=== PATIENT | male | born 1985 | race Hispanic/Latino ===

== ENCOUNTER 2024-05-19 16:00 | Emergency (ER) | payer BC, OTHER ==
[~2024-05-19] VITALS: Ht 175.3 cm; Wt 145.1 kg
--- NOTE | 2024-05-19 16:42 | ERN ---
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 HE DENIES FEVER CHILLS NAUSEA VOMITING. STATES HE IS TRYING TO STOP VAPING NO PRIMARY CARE DOCTOR. Allergies: Coded Allergies: iodine (Unverified Allergy, Unknown, 05/19/24) Past Medical History Past Medical History: Anxiety Surgical History: None RN Note Reviewed/Agreed w/PFSH: Yes Review of System Dictation CONSTITUTIONAL: NEGATIVE EXCEPT FOR HPI HEAD/FACE: NEGATIVE EXCEPT FOR HPI EENT: NEGATIVE EXCEPT FOR HPI RESPIRATORY: NEGATIVE EXCEPT FOR HPI SHORTNESS A BREATH/NONPRODUCTIVE COUGH GASTROINTESTINAL/ABDOMINAL: NEGATIVE EXCEPT FOR HPI GENITOURINARY: NEGATIVE EXCEPT FOR HPI MUSCULOSKELETAL: NEGATIVE EXCEPT FOR HPI INTEGUMENTARY: NEGATIVE EXCEPT FOR HPI NEUROLOGICAL/PSYCH: NEGATIVE EXCEPT FOR HPI HEMATOLOGIC/LYMPHATIC: NEGATIVE EXCEPT FOR HPI ALL SYSTEMS NEGATIVE, EXCEPT NOTED ABOVE. 13 POINT REVIEW OF SYSTEMS ASSESSED AND ALL NEGATIVE EXCEPT FOR ABOVE. Initial Vital Sign VS Vital Signs Date Time Temp Pulse Resp B/P (MAP) Pulse Ox O2 Delivery O2 Flow Rate FiO2 05/19/24 16:04 98.8 95 20 167/108 97 Room Air 0 05/19/24 16:07 21 Physical Exam Dictation VITAL SIGNS REVIEWED GENERAL APPEARANCE: ALERT, ORIENTED X 3, NO ACUTE DISTRESS, WELL DEVELOPED, NOURISHED. OBESE HEAD AND FACE: NON-TRAUMATIC. EYES: PERRL, PINK CONJUNCTIVAS, EYELID NO TRAUMA, ANTERIOR CHAMBER WITH ARCUS SENILIS. EARS: PINNAS INTACT AND NO SIGNS OF TRAUMA OR ERYTHEMA EAR CANALS CLEAR AND NO DISCHARGE TM NO ERYTHEMA NOSE: NO DISCHARGE, NO BLEEDING. OROPHARYNX: MOUTH NORMAL, TONGUE PINK, PHARYNX CLEAR,NO ERYTHEMA, TONSILS NO EXUDATES, NO ABSCESSES NOTED, MUCOUS MEMBRANE MOIST NECK: SUPPLE, NON-TENDER, NO THYROMEGALY, NO MASSES, NO JVD, NO BRUITS BREAST:DEFERRED CHEST:NO TENDERNESS, NO CREPITUS, NO PARADOXICAL MOVEMENT, NO RETRACTIONS LUNGS:CLEAR, WELL-VENTILATED, SYMMETRIC, NO RALES, NO WHEEZING, NO RHONCHI, NO STRIDOR, GOOD BREATH SOUNDS BILATERALLY DRY COUGH NOTED NO TACHYPNEA, NO RETRACTION HEART: REGULAR RATE, REGULAR RHYTHM, NO MURMUR, NO GALLOPS VASCULAR: NO PERIPHERAL EDEMA, ABDOMEN: SOFT, POSITIVE BOWEL SOUNDS, NONDISTENDED, NO GUARDING, NONTENDER, NO REBOUND, NO MASSES NO HEPATOMEGALY, NO SPLENOMEGALY, NO LYNN'S SIGN, NO HERNIAS. RECTAL: DEFERRED GENITAL: DEFERRED NEUROLOGICAL: NORMAL SPEECH, MOTOR FUNCTION INTACT, SENSORY FUNCTION INTACT MUSCULOSKELETAL: NECK NONTENDER, FULL RANGE OF MOTION, BACK NONTENDER, FULL RANGE OF MOTION, EXTREMITIES: NONTENDER, FULL RANGE OF MOTION SKIN: COLOR PINK, DRY, NO TURGOR, NO RASH, NO LACERATIONS, NO ABRASIONS, NO CONTUSIONS. LYMPHATIC: DEFERRED Results (Laboratory/Radiology) Laboratory/Radiology INDICATION: SHORTNESS A BREATH TWO DAYS TECHNIQUE: CHEST 1VW COMPARISON: None FINDINGS/IMPRESSION: No acute consolidation or pleural effusion. Cardiac silhouette is within normal limits. Mild degenerative changes of the spine. The visualized upper abdomen appears unremarkable. Labs Reviewed?: Yes ED Course ED Course Orders Procedure Category Date Status Time Dexamethasone 4mg/Ml PHA 05/19/24 Complete 1ml Vial (Dexametha 17:00 Chest 1vw RAD 05/19/24 Resulted 16:39 Current Medications Medications (Trade) Dose Ordered Sig/Joshua Route PRN Reason Start Time Stop Time Status Last Admin Dose Admin Dexamethasone Sodium Phosphate (dexaMETHasone 4MG/ML 1ML VIAL) 8 mg ONCE ONCE IM 05/19/24 17:00 05/19/24 17:01 DC Vital Signs Date Time Temp Pulse Resp B/P (MAP) Pulse Ox O2 Delivery O2 Flow Rate FiO2 05/19/24 16:07 98.8 95 20 167/108 97 Room Air* 0 21 05/19/24 16:04 98.8 95 20 167/108 97 Room Air 0 1755, PATIENT REMAINS HYPERTENSIVE HOWEVER RESPIRATIONS BETTER AFTER DECADRON. WE WILL BE DISCHARGED HOME WITH DECADRON AND ALBUTEROL TOLD TO SEE A DOCTOR IN THE NEXT FEW DAYS FOR FOLLOW UP FOR REACTIVE AIRWAY DISEASE WELL BENIGN HYPERTENSION HE WAS GIVEN A LIST OF THE DOCTORS ON STAFF Medical Decision Making MDM MEDICAL DISCHARGE MAKING BASED ON CHEST X-RAY AND DECADRON FOR REACTIVE AIRWAY DISEASE. PATIENT HAS A CHEST X-RAY THAT IS NEGATIVE DISCHARGED HOME WITH ENALAPRIL/MEDROL DOSEPAK/ALBUTEROL GIVEN A LIST OF THE DOCTORS DX & DISP Disposition: Discharge Departure Impression: Primary Impression: Reactive airway disease Additional Impressions: Dyspnea, Vapes non-nicotine containing substance, Hypertension Condition: Stable Scripts Enalapril Maleate (Enalapril Maleate) 10 Mg Tablet 1 TAB PO DAILY for 30 Days, #30 TAB 0 Refills Prov: JOSEMANUEL TINEO NP 05/19/24 Methylprednisolone (Medrol) 4 Mg Tab.ds.pk 1 TAB PO AD for 6 Days, #21 TAB 0 Refills 6 on day 1 then reduce by one tablet daily until gone Prov: JOSEMANUEL TINEO NP 05/19/24 Albuterol Sulfate (Ventolin Hfa/Proventil Hfa/Proair Hfa) 90 Mcg Puff 2 PUFF IH Q4H for WHEEZING, #1 INHALER 0 Refills Prov: JOSEMANUEL TINEO NP 05/19/24 Additional Instructions: FOLLOW-UP WITH PRIMARY CARE PROVIDER IN 1 TO 2 DAYS. TAKE MEDICATIONS DIRECTED HERE IN THE EMERGENCY ROOM. OKAY TO CONTINUE HOME MEDICATIONS UNLESS OTHERWISE DISCUSSED DURING YOUR VISIT IN THE EMERGENCY ROOM TODAY. RETURN TO Y OUR NEAREST EMERGENCY ROOM IF SYMPTOMS WORSEN OR IF THERE IS NO IMPROVEMENT. CALL 911 IF YOU NEED IMMEDIATE ASSISTANCE. TAKE TYLENOL OR MOTRIN [id number] NEEDED AND IF NO CONTRAINDICATIONS ARE PRESENT. INCREASE ORAL HYDRATION. A WOUND CULTURE OR URINE CULTURE WAS ORDERED HERE IN THE EMERGENCY ROOM DEPARTMENT PLEASE FOLLOW-UP WITH PRIMARY CARE PROVIDER AND ADVISE THEM TO GET REPEAT PORTS FROM OUR FACILITY. IF YOU HAD ANY GURU WRAP/SPLINTS THAT WERE APPLIED HERE, PLEASE DO NOT REMOVE THEM UNTIL YOU SEE YOUR PRIMARY CARE OR SPECIALTY. SUGGEST STOPPING VAPING. USE ALBUTEROL INHALER EVERY4 HOURS WHILE AWAKE FOR THE NEXT TWO DAYS, TAKE MEDROL DOSEPAK DIRECTED UNTIL GONE. TAKE ENALAPRIL 10 MG DAILY DIRECTED FOR YOUR HIGH BLOOD PRESSURE AND SEE ONE OF THE DOCTORS ON THE LIST PROVIDED YOU IN THE NEXT 2-3 DAYS. Time of Disposition: 17:58 I have reviewed the case, and I agree with, Diagnosis and Plan JOSEMANUEL TINEO NP May 19, 2024 16:42
--- NOTE | 2024-05-19 17:14 | HMCIMG ---
INDICATION: SHORTNESS A BREATH TWO DAYS TECHNIQUE: CHEST 1VW COMPARISON: None FINDINGS/IMPRESSION: No acute consolidation or pleural effusion. Cardiac silhouette is within normal limits. Mild degenerative changes of the spine. The visualized upper abdomen appears unremarkable.
[2024-05-19] MEDS ORDERED: ENAL-89 PO (17:59)
[2024-05-19] MEDS ORDERED: METH4TAB3 PO (17:59)
[2024-05-19] MEDS ORDERED: ALBUHFA IH (17:59)
[2024-05-19] MEDS: dexaMETHasone SOD PHOSPHATE 4 MG/ML 1ML VIAL IM ONE (19:43)
[2024-05-19 19:47] VITALS: BP 160/95; PULSE 90; RESP 16; TEMP 98.3; O2SAT 98
== END 2024-05-19 19:54 | disposition home or self-care (01) ==
LOC: EDH 16:00
DX: J45.909 Unspecified asthma, uncomplicated (principal); I10 Essential (primary) hypertension; Z88.8 Allergy status to other drugs, medicaments and biological substances; Z91.041 Radiographic dye allergy status
CPT/HCPCS: 99284; 71045; 96372; J1100

== ENCOUNTER 2024-07-29 02:59 | Emergency (ER) | payer BC ==
[~2024-07-29] VITALS: Ht 175.3 cm; Wt 136.1 kg
[~2024-07-29 02:59] MED LIST: ALBUHFA IH; ENAL-89 PO; METH4TAB3 PO
[2024-07-29 03:00] VITALS: TEMP 97.7
--- NOTE | 2024-07-29 03:06 | NUR ---
REPORT TO SHAHEEN MENDOZA
[2024-07-29 03:40] LABS: AMPHET/METH SCREEN,URINE NEGATIVE (NEGATIVE); BARBITURATE SCREEN, URINE NEGATIVE (NEGATIVE); BENZODIAZEPINES SCREEN,URINE NEGATIVE (NEGATIVE); CANNABINOID SCREEN,URINE NEGATIVE (NEGATIVE); COCAINE SCREEN,URINE NEGATIVE (NEGATIVE); OPIATE SCREEN,URINE NEGATIVE (NEGATIVE); PHENCYCLIDINE SCREEN,URINE NEGATIVE (NEGATIVE)
[2024-07-29] MEDS ORDERED: TRAZ-185 PO (03:40)
--- NOTE | 2024-07-29 03:40 | ERN ---
ED Note History of Present Illness Stated Complaint: "ANXIETY" Chief Complaint: Anxiety/Panic Attack Time Seen by MD: 03:05 Dictation: This is a 39-year-old male who presented to the emergency room stating that he has been unable to sleep for months and by 2-3 am , he wakes up and is extremely anxious pacing the halls and also tries to go out to the porch and sit there. He has also tried to take cold showers to psych himself and tried to go back to bed only to wake up at 6:00 a.m. for his responsibilities. He has also felt not just anxiety but mood has been on the low side but he denied having any suicidal thoughts or intent. 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 He does give a history vaping nicotine product and at times cannabis which has reduced his anxiety but it is not helping him anymore Temperature 97.7 pulse 71 respirations 18 blood pressure 128/90 with a pulse oximetry of 96% on room air His chronic medical problem includes hypertension. 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 during the day--all highly suggestive of underlying sleep disorder PCP's-[facility] Allergies: Coded Allergies: iodine (Unverified Allergy, Unknown, 05/19/24) Home Meds Active Scripts Trazodone HCl (Trazodone HCl) 50 Mg Tablet, 1 TAB PO HS for 30 Days, #30 TAB 0 Refills Prov:LEN ALONSO MD 07/29/24 Enalapril Maleate (Enalapril Maleate) 10 Mg Tablet, 1 TAB PO DAILY for 30 Days, #30 TAB 0 Refills Prov:JOSEMANUEL TINEO NP 05/19/24 Methylprednisolone (Medrol) 4 Mg Tab.ds.pk, 1 TAB PO AD for 6 Days, #21 TAB 0 Refills 6 on day 1 then reduce by one tablet daily until gone Prov:JOSEMANUEL TINEO NP 05/19/24 Albuterol Sulfate (Ventolin Hfa/Proventil Hfa/Proair Hfa) 90 Mcg Puff, 2 PUFF IH Q4H for WHEEZING, #1 INHALER 0 Refills Prov:JOSEMANUEL TINEO DENTAL INSURANCE COORDINATOR 05/19/24 Past Medical History Past Medical History: Anxiety, Hypertension Surgical History: None Family History: Negative (Vaping nicotine products, cannabis products) Social History: Smokers, Drugs RN Note Reviewed/Agreed w/PFSH: Yes Review of System Dictation Constitutional: Negative for fever,chills, and weight loss Eyes: Negative for injury, pain,redness, and discharge ENT: Negative for injury,pain or swelling Cardiovascular: Negative for chest pain, palpitations, and edema Respiratory: Negative for shortness of breath, cough, and wheezing, Abdomen/GI: Negative for abdominal pain, nausea, vomiting, diarrhea, and constipation Back: Negative for injury and pain : Negative for injury, bleeding and discharge MS/Extremity: Negative for injury and deformity Skin: Negative for rash, and discoloration Neuro: Negative for headache, weakness, numbness, tingling, and seizure Psych: Negative for suicide ideation, homicidal ideation, and hallucinations, positive for severe anxiety, 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 Initial Vital Sign VS Vital Signs Date Time Temp Pulse Resp B/P (MAP) Pulse Ox O2 Delivery O2 Flow Rate FiO2 07/29/24 03:00 97.7 71 18 128/90 96 Room Air 07/29/24 03:13 0 21 Physical Exam Dictation General: awake, alert, NAD extremely obese Head/Face: Normocephalic, atraumatic Eyes: PERRL, EOMI, vision at baseline ENT: oral cavity clear, TMs clear, no signs of infection, Mallampati score 4 Neck: Trachea midline, supple, no nuchal rigidity very short and thick Cardiovascular: RRR, normal S1/S2, No MRGs, no JVD Respiratory: CTAB, no respiratory distress, No rales or wheezes Abdomen: Soft, non-tender, non-distended, normal bowel sounds, no guarding or rebound. Skin: Warm, dry, normal turgor, no rash MS/Extremity: Pulses equal, no cyanosis, neurovascular intact, FROM Neuro: COAx4, GCS 15, strength 5/5, CN 2-12 intact, normal cerebellar exam, normal gait, Psych: Normal behavior, mood, and affect normal Extremities-trace edema without any palpable cords, Homans sign is negative Results (Laboratory/Radiology) Laboratory/Radiology Laboratory Tests Test 07/29/24 03:20 Urine Opiates Screen NEGATIVE (NEGATIVE) Urine Barbiturates Screen NEGATIVE (NEGATIVE) Urine Phencyclidine Screen NEGATIVE (NEGATIVE) Urine Amphetamines Screen NEGATIVE (NEGATIVE) Urine Benzodiazepines Screen NEGATIVE (NEGATIVE) Urine Cocaine Screen NEGATIVE (NEGATIVE) Urine Marijuana (THC) Screen NEGATIVE (NEGATIVE) Labs Reviewed?: Yes EKG Comment: Twelve lead EKG done on 07/29/2024 at 4:42 a.m. shows a heart rate of 80, [place] interval 132, QRS 97, QT/QTC 372/429 Impression normal sinus rhythm with left axis deviation nonspecific ST-T changes Interpreted by ER MD ED Course ED Course Orders Procedure Category Date Status Time Drug Screen Urine LAB 07/29/24 In Process 03:05 12 Lead Ekg Tracing- EKG 07/29/24 Logged Technical 03:34 Vital Signs Date Time Temp Pulse Resp B/P (MAP) Pulse Ox O2 Delivery O2 Flow Rate FiO2 07/29/24 03:13 81 16 144/89 99 Room Air* 0 21 07/29/24 03:00 97.7 71 18 128/90 96 Room Air We will pursue an EKG baseline. Urine drug screen is negative I had a long discussion with the patient and his spouse about likely multifactorial etiology for his crew[employer] battle [employer] awakening and anxiety attacks and recommended trazodone as the 1st step not only to help with sleep and insomnia, but could improve his anxiety and mood. They both verbalized full understanding and we will follow up with the primary provider for additional evaluation as needed. I explained to both of them they need regular follow ups and monitoring while on medications. Medical Decision Making MDM MDM: Differential diagnosis: Anxiety panic attacks, subclinical depression, sleep disorder Rationale: Tests considered and ordered secondary to shared decision making include: Previous outside records reviewed: Old ER visits. Risk of complication and/or morbidity or mortality of patient management: None Medications-Per medication reconciliation Need for hospitalization: Patient does not meet criteria for hospitalization. Need for emergency major/minor surgery: No There are no social concerns with this patient. Prescription drug management Prescriptions will include symptomatic care Patient's prior external medical records from other ER visits were reviewed by me as indicated. Prior testing and results from previous visits were reviewed. Prior tests were taken into account with medical decision making and resource utilization, independent historian/historians were used to obtain complete medical history. I independently interpreted the test that were performed, results were reviewed by me and considered findings on radiology if ordered. Medical management and examination interpretation discussions were had by me with other qualified healthcare professionals as indicated for the patient's care. 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 (3) Morbid obesity (4) JULISA (obstructive sleep apnea) (5) Severe anxiety (6) Vapes nicotine containing substance (7) Current cannabis vapor product user on some days DX & DISP Disposition: Discharge Departure Impression: Primary Impression: Insomnia Additional Impressions: Severe anxiety, Mood disorder due to a general medical condition, Morbid obesity, JULISA (obstructive sleep apnea), Vapes nicotine containing substance, Current cannabis vapor product user on some days Condition: Stable Scripts Trazodone HCl (Trazodone HCl) 50 Mg Tablet 1 TAB PO HS for 30 Days, #30 TAB 0 Refills Prov: LEN ALONSO MD 07/29/24 Additional Instructions: Patient and the caregiver have been informed of all the diagnostic tests and the imaging conducted during the today's visit to the emergency room and has verbalized understanding of the results I have personally reviewed and interpreted all diagnostic exams performed here in the ER today as well as the vital signs documented by the nursing staff. The patient is now being discharged to home and should follow up with the primary care physician or the specialist as directed by the ER staff. Follow-up with primary care provider in 1 to 2 days. Take medications as directed here in the emergency room. Okay to continue home medications unless otherwise discussed during your visit in the emergency room today. Return to your nearest emergency room if symptoms worsen or if there is no improvement. Call 911 if you need immediate assistance. Take Tylenol or Motrin [id number] as needed and if no contraindications are present. Increase oral hydration. A wound culture or urine culture was ordered here in the emergency room department please follow-up with primary care provider and advise them to get repeat ports from our facility. If you had any Govind wrap/splints that were applied here, please do not remove them until you see your primary care or specialty. Extensive counseling on sleep hygiene, recommended to pursue a sleep study with his primary care provider. He also needs to follow up with the primary care provider regularly for checkups while he is on trazodone Referrals: Fernie NIEVES MD (PCP) LEN ALONSO MD Jul 29, 2024 03:40
[2024-07-29] MEDS: trAZOdone HCL 50 MG TAB PO ONE (03:56)
[2024-07-29 05:31] VITALS: BP 122/71; PULSE 72; RESP 16; O2SAT 98
--- NOTE | 2024-07-29 13:06 | EKG ---
[facility] Test Date: 2024-07-29 Test Time: 05:42:58 Pat Name: CHAVEZ FABIAN Department: ED Room: Gender: M Manager Home: [address] : 1985 Requested By: LEN ALONSO Order Number: [id number] Reading MD: Eric Callejas Measurements Intervals Nora Rate: 80 P: 2 TN: 132 QRS: -30 QRSD: 97 T: 45 QT: 372 QTc: 429 Interpretive Statements Sinus rhythm Left axis deviation ST elevation suggests acute pericarditis No previous ECG available for comparison Electronically Signed On 07-29-2024 13:40:11 CDT by Eric Callejas Please click the below link to view image of tracing.
== END 2024-07-29 05:32 | disposition home or self-care (01) ==
LOC: EDH 02:59
DX: G47.00 Insomnia, unspecified (principal); F41.9 Anxiety disorder, unspecified; G47.33 Obstructive sleep apnea (adult) (pediatric); F17.290 Nicotine dependence, other tobacco product, uncomplicated; E66.01 Morbid (severe) obesity due to excess calories; I10 Essential (primary) hypertension; Z79.899 Other long term (current) drug therapy; Z88.8 Allergy status to other drugs, medicaments and biological substances; Z91.041 Radiographic dye allergy status
CPT/HCPCS: 80305; 93005; 99284